=== PATIENT | female | born 1985 | race American Indian/Alaskan Native ===

== ENCOUNTER 2018-08-06 21:26 | Inpatient (IN) | payer OTHER ==
[2018-08-06 22:02] VITALS: BMI 29.2
--- NOTE | 2018-08-06 22:44 | PDOC ---
History of Present Illness - General Chief Complaint: Pain, Acute Stated Complaint: ABDOMINAL PAIN History Source: Patient Exam Limitations: No Limitations - History of Present Illness Initial Comments: 08/06/18 22:39 Patient is a 33 year female with pmhx kidney stone which admission on 02/20/18 for infected stone, lithotripsy 02/23/18, c/o left flank pain since this evening. Patient states that she is scheduled for surgical procedure tomorrow however she had pain tonight and so is here at the emergency room. Pain is colicky 6/10 , no hematuria, no nausea, no vomiting, no fever. PMHX: as above PSOCHX: neg etoh, drug, cig ALL: NKDA GENERAL/CONSTITUTIONAL: [No fever or chills. No weakness. No weight change.] HEAD, EYES, EARS, NOSE AND THROAT: [No change in vision. No ear pain or discharge. No sore throat.] CARDIOVASCULAR: [No chest pain or shortness of breath.] RESPIRATORY: [No cough, wheezing, or hemoptysis.] GASTROINTESTINAL: [No nausea, vomiting, diarrhea or constipation. No rectal bleeding.] GENITOURINARY: [No dysuria, frequency, or change in urination.] MUSCULOSKELETAL: [No joint or muscle swelling or pain. No neck or back pain.] SKIN AND BREASTS: [No rash or easy bruising.] NEUROLOGIC: [No headache, vertigo, loss of consciousness, or loss of sensation.] PSYCHIATRIC: [No depression or anxiety.] ENDOCRINE: [No increased thirst. No abnormal weight change.] HEMATOLOGIC/LYMPHATIC: [No anemia, easy bleeding, or history of blood clots.] ALLERGIC/IMMUNOLOGIC: [No hives or skin allergy. No latex allergy.] GENERAL: [The patient is awake, alert, and fully oriented, in no acute distress. ] HEAD: [Normal with no signs of trauma.] EYES: [Pupils equal, round and reactive to light, extraocular movements intact, sclera anicteric, conjunctiva clear.] ENT: [Ears normal, nares patent, oropharynx clear without exudates. Moist mucous membranes.] NECK: [Normal range of motion, supple without lymphadenopathy, JVD, or masses.] LUNGS: [Breath sounds equal, clear to auscultation bilaterally. No wheezes, and no crackles.] HEART: [Regular rate and rhythm, normal S1 and S2 without murmur, rub.] ABDOMEN: [Soft, nontender, normoactive bowel sounds. No guarding, no rebound. No masses, LCVAT] EXTREMITIES: [Normal range of motion, no edema. No clubbing or cyanosis. No cords, erythema, or tenderness.] NEUROLOGICAL: [Cranial nerves II through XII grossly intact. Normal speech, normal gait.] PSYCH: [Normal mood, normal affect.] SKIN: [Warm, Dry, normal turgor, no rashes or lesions noted.] Past History - Past Medical History Allergies/Adverse Reactions: Allergies Allergy/AdvReac Type Severity Reaction Status Date / Time No Known Allergies Allergy Verified 08/06/18 22:02 Home Medications: Ambulatory Orders Amoxicillin/Potassium Clav [Augmentin 875-125 Tablet] 1 each PO BID #14 tablet 02/22/18 COPD: No - Suicide/Smoking/Psychosocial Hx Smoking History: Never smoked Have you smoked in the past 12 months: No Information on smoking cessation initiated: No Hx Alcohol Use: No Drug/Substance Use Hx: No Substance Use Type: None *Physical Exam - Vital Signs Last Vital Signs Temp Pulse Resp BP Pulse Ox 98.2 F 70 18 121/55 L 100 08/06/18 21:54 08/06/18 21:54 08/06/18 21:54 08/06/18 21:54 08/06/18 21:54 Moderate Sedation - Procedure Monitoring Vital Signs: Procedure Monitoring Vital Signs Temperature 98.2 F 08/06/18 21:54 Pulse Rate 70 08/06/18 21:54 Respiratory Rate 18 08/06/18 21:54 Blood Pressure 121/55 L 08/06/18 21:54 O2 Sat by Pulse Oximetry (%) 100 08/06/18 21:54 ED Treatment Course - LABORATORY CBC & Chemistry Diagram: 08/06/18 23:08 08/06/18 23:08 Medical Decision Making - Medical Decision Making 08/06/18 22:39 Patient is a 33 year female with pmhx kidney stone which admission on 02/20/18 for infected stone, lithotripsy 02/23/18, c/o left flank pain since this evening. Patient states that she is scheduled for surgical procedure tomorrow however she had pain tonight and so is here at the emergency room. Pain is colicky 6/10 , no hematuria, no nausea, no vomiting, no fever. symptoms consistent with renal colic labs, IVF, toradol for pain Case d/w Dr. Oliver Lora states no radiology studies needed to make patient npo after midnight. will admit to hospitalist *DC/Admit/Observation/Transfer Diagnosis at time of Disposition: Renal colic, Kidney stone - Discharge Dispostion Condition at time of disposition: Stable Decision to Admit order: Yes - Referrals - Patient Instructions - Post Discharge Activity
[2018-08-06] MEDS ORDERED: SODIUM CHLORIDE 0.9% 500 ML INFUS.BAG IV ONE (22:51)
[2018-08-06 23:20] LABS: BASO % 1.1 % (0-2.0); EOS % 1.1 % (0-4.5); HEMATOCRIT 35.3 % (32.4-45.2); HEMOGLOBIN 12.3 GM/dL (10.7-15.3); LYMPH % 26.7 % (8-40); MCH 28.1 pg (25.7-33.7); MCHC 34.7 g/dl (32.0-36.0); MEAN PLT VOLUME 8.1 fl (7.5-11.1); MONO % 6.8 % (3.8-10.2); NEUT % 64.3 % (42.8-82.8); PLATELET COUNT 355 K/MM3 (134-434); RBC 4.36 M/mm3 (3.60-5.2); RDW 13.1 % (11.6-15.6); WHITE BLOOD COUNT 7.1 K/mm3 (4.0-10.0)
[2018-08-06 23:45] LABS: ALBUMIN 3.7 g/dl (3.4-5.0); ALK PHOS 53 U/L (45-117); ANION GAP 9 MMOL/L (8-16); BILIRUBIN,TOTAL 0.2 mg/dL (0.2-1); BLOOD UREA NITROGEN 13 mg/dL (7-18); CALCIUM 9.3 mg/dL (8.5-10.1); CHLORIDE 108 mmol/L (98-107); CO2 23 mmol/L (21-32); CREATININE 0.5 mg/dL (0.55-1.3); GLUCOSE,RANDOM 113 mg/dL (74-106); POTASSIUM 3.9 mmol/L (3.5-5.1); SGOT/AST 11 U/L (15-37); SGPT/ALT 21 U/L (13-61); SODIUM 140 mmol/L (136-145); TOT PROT 7.4 g/dl (6.4-8.2)
--- NOTE | 2018-08-07 02:14 | PN ---
Teaching Attending Note Name of Resident: Theron Dean ATTENDING PHYSICIAN STATEMENT I saw and evaluated the patient. I reviewed the resident's note and discussed the case with the resident. I agree with the resident's findings and plan as documented. SUBJECTIVE: Seen and examined; please see resident note for further historical information. Presents with pain similar to what she was having with her kidney stone. Her urologist was called and per the ER requested admission with no imaging; has a procedure planned for tomorrow. Had a stent placed her last admission due to obstructive uropathy followed by lithotripsy 02/23. UA still pending at time of admission so will not electively cover with abx until we have that information back. Prior cultures reviewed alongside past admits. PMH, PSH, FH, Social history reviewed Medication list reviewed; reconciliation pending OBJECTIVE: VS, labs reviewed NAD, AAO, resting in bed Some flank pain to palpation; Nondistended with +BS CN2-12 wnl, no fnd RRR s1/2 no mgr Labs reviewed; no WBC count with unremarkable chemistry and CBC. Coags and UA still pending. ASSESSMENT AND PLAN: 1) Hx Renal Stones with stenting, hx UTI -Reviewed last admission; had stenting done by Dr. Oliver Green and sent home on PO abx. Procedure planned for tomorrow. NPO with maintenance fluids overnight. F /U UA to see if abx needed. Followup urine cx. No abx until we get cx. Informed by ER that it was requested no imaging be ordered. FENA -LR@75 -PRN replete -NPO -As tolerated DVT px: SCD, early ambulation Full Code
[2018-08-07 02:23] LABS: URINE APPEARANCE CLOUDY; URINE BILIRUBIN NEGATIVE (<2.0 mg/dL); URINE COLOR LTYELLOW; URINE GLUCOSE (UA) NEGATIVE (NEGATIVE); URINE KETONE NEGATIVE (NEGATIVE); URINE LEUK ESTERASE NEGATIVE (NEGATIVE); URINE NITRITE NEGATIVE (NEGATIVE); URINE PROTEIN NEGATIVE (NEGATIVE); URINE UROBILINOGEN NEGATIVE mg/dL (0.2-1.0)
--- NOTE | 2018-08-07 10:37 | PN ---
Progress Note, Physician Chief Complaint: Ms Swift says she is having left sided flank pain. No cp, sob, n/v. - Objective Vital Signs: Vital Signs Temperature 36.6 C 08/07/18 09:27 Pulse Rate 57 L 08/07/18 09:27 Respiratory Rate 18 08/07/18 09:27 Blood Pressure 104/52 L 08/07/18 09:27 O2 Sat by Pulse Oximetry (%) 99 08/07/18 07:20 Constitutional: Yes: Well Nourished, No Distress, Calm Cardiovascular: Yes: Regular Rate and Rhythm. No: Gallop, Murmur, Rub Respiratory: Yes: Regular, CTA Bilaterally. No: Rales, Rhonchi, Wheezes Gastrointestinal: Yes: Normal Bowel Sounds, Soft. No: Distention, Tenderness Extremities: Yes: WNL Edema: No Labs: CBC, BMP 08/06/18 23:08 08/06/18 23:08 Problem List - Problems (1) Kidney stone Code(s): N20.0 - CALCULUS OF KIDNEY (2) Renal colic Code(s): N23 - UNSPECIFIED RENAL COLIC Assessment/Plan -patient admitted per recommendation of her urologist -will place consult, but he is aware of her -planning for removal of stent today, timing per urology -suspect can be discharged after procedure since originally performed as an outpatient -urinalysis negative and no signs of sepsis, will hold on antibiotics -further recommendations per urology
[2018-08-07] MEDS ORDERED: MIDAZOLAM HCL 2 MG/2 ML SINGLE DOSE VIAL ONE (14:49)
[2018-08-07] MEDS ORDERED: oxyCODONE HCL 5 MG TABLET PO PRN (14:59)
--- NOTE | 2018-08-07 15:41 | OP ---
Operative Note - Note: Operative Date: 08/07/18 Pre-Operative Diagnosis: Left renal stone Operation: Left ESWL Findings: 3 mm upper & 3 mm lower Left kidney stone Post-Operative Diagnosis: Same as Pre-op Anesthesia: Fractional Estimated Blood Loss (mls): 0 Operative Report Dictated: Yes
--- NOTE | 2018-08-07 17:07 | DS ---
Physical Examination Vital Signs: Vital Signs Temperature 36.7 C 08/07/18 17:02 Pulse Rate 55 L 08/07/18 17:02 Respiratory Rate 20 08/07/18 17:02 Blood Pressure 110/62 08/07/18 17:02 O2 Sat by Pulse Oximetry (%) 98 08/07/18 17:02 Labs: CBC, BMP 08/06/18 23:08 08/06/18 23:08 Discharge Summary Reason For Visit: RENAL COLIC Current Active Problems Kidney stone (Acute) Renal colic (Acute) Hospital Course: Please refer to progress note today for physical exam. In short Ms Swift is a very pleasant 33 year old female who presented to the ED with renal colic. She has a ureteral stent in place and was planned to remove it today, since she was having pain she was admitted. She underwent stent removal and is safe for discharge home. Condition: Good - Instructions Diet, Activity, Other Instructions: Hydration Encourage ambulation No ASA Advance diet Referrals: Denver Payne MD [Staff Physician] - Disposition: HOME - Home Medications Comprehensive Discharge Medication List: Ambulatory Orders Amoxicillin/Potassium Clav [Augmentin 875-125 Tablet] 1 each PO BID #14 tablet 02/22/18
[2018-08-07 17:50] VITALS: BP 112/78; PULSE 70; TEMP 98.2
--- NOTE | 2018-08-08 08:07 | OP ---
DATE OF OPERATION: 08/07/2018 PREOPERATIVE DIAGNOSIS: Left renal stone. POSTOPERATIVE DIAGNOSIS: Left renal stone. PROCEDURE: Left extracorporeal shock wave lithotripsy. ATTENDING: Christian Solis MD ANESTHESIA: Fractional. DESCRIPTION OF OPERATION: The patient was brought in the operating room, placed in supine position on the operating room table. Two stones in the left kidney measuring 3 mm were noted in the upper pole and mid-pole segments. Shock wave lithotripsy was then started after anesthesia and preoperative antibiotics were administered. Excellent fragmentation was noted under real-time ultrasonography and fluoroscopy. No complications were noted. The patient tolerated the procedure very well. The disposition of the patient was to the recovery room. CHRISTIAN SOLIS M.D. [id number]
== END 2018-08-07 17:40 | disposition home or self-care (01) | DRG 465 ==
LOC: JER 21:26 → JERBED 08-07 03:03
PROVIDERS: ADMIT Internal Medicine; ATTEND Internal Medicine
PROC: 0TF48ZZ Fragmentation in Left Kidney Pelvis, Via Natural or Artificial Opening Endoscopic (ICD-10-PCS; principal; 2018-08-07 14:45)
DX: N20.0 Calculus of kidney (principal); N23 Unspecified renal colic
CPT/HCPCS: 36415; 80053; 81003; 84702; 85025; 94760; 99283-25